=== PATIENT | female | born 1960 | race Caucasian/White ===

== ENCOUNTER → 2018-10-27 | Outpatient (CLI) | payer BC ==
[~2018-10-27] MED LIST: CALCIUM CARB W/1 TA1 PO; CYTOMEL0.05 MG PO; ESTRACE PO; OSCAL 500MG/VI500 MG PO; OXYCODONE5 MG PO; SYNTHROID 0.10.15 MG PO; SYNTHROID0.137 MG PO; ULTRAM50 MG PO; VITAMIN D1000 IU PO
== END ==
LOC: COL.RAD 08:51
DX: M79.672 Pain in left foot (principal); M79.671 Pain in right foot
CPT/HCPCS: J3301; Q9967

== ENCOUNTER 2019-05-10 06:57 | Day surgery (SDC) | payer BC ==
[~2019-05-10] VITALS: Ht 180.3 cm; Wt 92.4 kg
[2019-05-10 07:18] VITALS: BP 135/79; PULSE 65; TEMP 97
[2019-05-10] MEDS ORDERED: CYMBALTA 20MG20 MG PO (07:37)
[2019-05-10] MEDS ORDERED: CYTOMEL 5MC5 MCG/TAB PO (07:37)
[2019-05-10] MEDS ORDERED: SYNTHROID0.125 MG/T PO (07:37)
[2019-05-10] MEDS ORDERED: DITROPAN XL 5MG5 M1 PO (07:38)
[2019-05-10] MEDS ORDERED: ZYRTEC 10MG10 MG PO (07:38)
[2019-05-10] MEDS ORDERED: NEURONTIN300 MG/CAP PO (07:38)
[2019-05-10] MEDS ORDERED: ESTRACE 1MG1 MG/TAB PO (07:39)
[2019-05-10] MEDS ORDERED: MULTI VITAMINS1 TAB PO (07:41)
[2019-05-10] MEDS ORDERED: CALCIUM 600-D 61 TAB PO (07:41)
[2019-05-10] MEDS ORDERED: TYLENOL 325MG325 MG PO (07:42)
[2019-05-10] MEDS ORDERED: MOTRIN 200200 MG/TAB PO (07:43)
[2019-05-10] MEDS ORDERED: TURMERIC500 MG PO (07:43)
[2019-05-10 08:55] VITALS: BP 106/56; PULSE 58; TEMP 97
--- NOTE | 2019-05-10 08:55 | NUR ---
The patient arrived back to [facility] at this time. The patient appears alert and oriented and denies any pain or nausea at this time. The patient ambulated from the cart to the recliner in her room with the stand by assistance of two nurses and appeared to tolerate the activity well. Post operative vital signs were started at this time. The patient's is at her bedside at this time. The patient agrees to try some cranberry juice and a muffin. Call light is within reach. Will continue to monitor the patient.
[2019-05-10 09:09] VITALS: BP 105/63; PULSE 57
--- NOTE | 2019-05-10 09:09 | NUR ---
The patient appears to be tolerate the food and drink well. The patient's remains at her bedside at this time. Vital signs appear stable. Will continue to monitor the patient.
[2019-05-10 09:10] VITALS: TEMP 97
[2019-05-10 09:23] VITALS: BP 104/58; PULSE 58
--- NOTE | 2019-05-10 09:24 | NUR ---
The patient has finished her food and drink and appeared to tolerate both well. The patient's remains at her bedside at this time. Call light is within reach. The patient denies any further needs at this time. Will continue to monitor the patient.
--- NOTE | 2019-05-10 09:25 | NUR ---
Dr. Lambert is at the patient's bedside discussing the findings of the procedure with the patient and her .
--- NOTE | 2019-05-10 09:30 | NUR ---
Discharge instructions were reviewed with the patient and her at this time. They both verbalized understanding and have no questions for the nurse at this time. The patient's IV to her right wrist was removed and a pressure dressing was applied to the site. The nurse instructed the patient to get dressed and notify the staff when she is ready to be escorted out.
--- NOTE | 2019-05-10 09:38 | NUR ---
The patient was escorted out via wheelchair to a private vehicle by ALEC Roberts. The patient's belongings and discharge paperwork were sent with her. The patient's is present to drive her home.
== END 2019-05-10 09:38 | disposition home or self-care (01) ==
LOC: SDCO 06:57
DX: Z12.11 Encounter for screening for malignant neoplasm of colon (principal); E03.9 Hypothyroidism, unspecified; Z85.850 Personal history of malignant neoplasm of thyroid; Z90.710 Acquired absence of both cervix and uterus; Z79.51 Long term (current) use of inhaled steroids; Z88.6 Allergy status to analgesic agent; Z88.8 Allergy status to other drugs, medicaments and biological substances
CPT/HCPCS: J2250; J3010

== ENCOUNTER → 2021-01-30 | Outpatient (CLI) | payer BC ==
[~2021-01-30] MED LIST changes: +CALCIUM 600-D 61 TAB PO; +CYMBALTA 20MG20 MG PO; +CYTOMEL 5MC5 MCG/TAB PO; +DITROPAN XL 5MG5 M1 PO; +ESTRACE 1MG1 MG/TAB PO; +MOTRIN 200200 MG/TAB PO; +MULTI VITAMINS1 TAB PO; +NEURONTIN300 MG/CAP PO; +SYNTHROID0.125 MG/T PO; +TURMERIC500 MG PO; +TYLENOL 325MG325 MG PO; +ZYRTEC 10MG10 MG PO
== END ==
LOC: COL.RAD 12:32
DX: M19.071 Primary osteoarthritis, right ankle and foot (principal); M19.072 Primary osteoarthritis, left ankle and foot
CPT/HCPCS: J3301

== ENCOUNTER 2021-04-25 08:53 | Observation (INO) | payer BC ==
[2021-04-25] VITALS (7 sets, daily range): BP systolic 91–107; BP diastolic 48–61; PULSE 58–75; TEMP 98.1
[~2021-04-25] VITALS: Ht 180.3 cm; Wt 93.2 kg
[~2021-04-25 08:53] MED LIST changes: +NEURONTIN100 MG/CAP PO; -NEURONTIN300 MG/CAP PO
[2021-04-25] MEDS ORDERED: AMBIEN 5MG TABLE5 MG PO (09:17)
[2021-04-25 09:35] LABS: BASO % 0.4 % (0.0-2.0); EOS # 0.1 K/mm3 (0.0-0.7); EOS % 0.5 % (0.0-4.0); GRAN # 8.4 K/mm3 (1.4-6.5); GRAN % 79.6 % (42.2-75.2); HEMATOCRIT 44.7 % (37.0-47.0); HEMOGLOBIN 14.6 g/dl (12.5-16.0); LYMPH % 9.5 % (20.0-51.0); MEAN CELL VOLUME 92 fl (80.0-100.0); MEAN CORPUSCULAR HEMOGLOBIN 30 pg (27-31); MEAN CORPUSCULAR HGB CONC 33 g/dl (33.0-37.0); MEAN PLATELET VOLUME 9.8 fl (7.4-10.4); MONO % 9.6 % (1.7-9.3); PLATELET COUNT 204 K/mm3 (130-400); RED BLOOD COUNT 4.85 M/mm3 (4.10-5.30); REDCELL DISTRIBUTION WIDTH-CV 12.9 % (11.5-14.5)
[2021-04-25 09:50] LABS: COLLECTION METHOD CLEAN CATCH
[2021-04-25 09:56] LABS: ALBUMIN 3.9 gm/dL (3.4-4.8); BILIRUBIN,TOTAL 0.5 mg/dL (0.2-1.2); CALCIUM 8.5 mg/dL (8.4-10.2); CREATININE, serum 0.75 mg/dL (0.57-1.11); POTASSIUM 3.8 mmol/L (3.5-4.5); TOTAL PROTEIN 6.8 gm/dL (6.2-8.1)
[2021-04-25 09:59] LABS: PH 7 (5-8); SQUAMOUS EPITHELIAL 0-2 /hpf (0-10); URINE APPEARANCE Clear (CLEAR/HAZY); URINE BACTERIA None Seen /hpf (NONE SEEN); URINE BILIRUBIN Negative (NEGATIVE); URINE BLOOD 2+ (NEGATIVE); URINE COLOR Yellow (YELLOW); URINE GLUCOSE Negative (NEGATIVE); URINE KETONE 1+ (NEGATIVE); URINE LEUKOCYTE ESTERASE Negative (NEGATIVE); URINE NITRATE Negative (NEGATIVE); URINE PROTEIN(semi-quant) Negative (NEGATIVE); URINE UROBILINOGEN Negative (NEGATIVE)
[2021-04-25] MEDS ORDERED: PERCOCET 325 MG1 TA2 PO (17:31)
[2021-04-25] MEDS ORDERED: MOTRIN 600600 MG/TAB PO (17:31)
--- NOTE | 2021-04-25 18:03 | NUR ---
Pt arrived to the floor at this time. She is A/O x4. Her breathing is even and unlabored on RA. Pt denies any SOB. No pain at this time. Denies N/V. Three lap sites CDI, no dressings in place. Clear liquids given and POC discussed with patient and her . Call light within reach.
--- NOTE | 2021-04-25 19:00 | NUR ---
RECEIVED CHANGE OF SHIFT REPORT FROM DAY SHIFT RN.
--- NOTE | 2021-04-25 19:45 | NUR ---
VOIDED X1 WITH NO REPORTED PROBLEMS. TOLERATED SOLID FOODS WITH NO REPORTED PROBLEMS. DENIES DISCOMFORT AT THIS TIME. PATIENT'S SPOUSE IN ROOM TO TRANSPORT PATIENT HOME UPON DISCHARGE. CRITERIA MET FOR DISCHARGE. DENIES CHEST PAIN/SOA/NAUSEA AT TIME OF DISCHARGE. DISCHARGE INSTRUCTIONS REVIEWED WITH PATIENT, NO ADDITIONAL QUESTIONS OR CONCERNS REPORTED. DISCHARGE PAPERS SIGNED. PATIENT DRESSED IN STREET CLOTHES, ESCORTED OFF UNIT VIA WHEELCHAIR WITH SPOUSE PRESENT, PATIENT REPORTS SHE HAS ALL HER BELONGINGS.
== END 2021-04-25 19:45 | disposition home or self-care (01) ==
LOC: COL.ER 08:53 → SURG 11:23
PROVIDERS: Personal Emergency Response Attendant; ADMIT Surgery
DX: K35.80 Unspecified acute appendicitis (principal); G62.9 Polyneuropathy, unspecified; Z85.850 Personal history of malignant neoplasm of thyroid
CPT/HCPCS: G0378; J0330; J1100; J1885; J2270; J2405; J2543; J2704; J3010; J7030; J7120; Q9967